=== PATIENT | male | born 1990 ===

== ENCOUNTER 2017-09-14 15:54 | Emergency (ER) | payer OTHER ==
[2017-09-14 16:14] LABS: PLATELET COUNT 223 10^3/uL (150-400)
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
--- NOTE | 2017-09-14 16:44 | CPEKG ---
Heart Rate: 67 RR Interval: 896 P-R Interval: 136 QRSD Interval: 94 QT Interval: 388 QTC Interval: [address]: [address]: [address]: 54 EKG Severity - NORMAL ECG - EKG Impression: SINUS RHYTHM Electronically Signed By: Jaz Blake 14-Sep-2017 23:05:46
[2017-09-14 17:27] VITALS: BP 119/75
== END 2017-09-14 17:26 | disposition home or self-care (01) ==
LOC: EDUNIT#
DX: R40.4 Transient alteration of awareness (principal)
CPT/HCPCS: G0480

== ENCOUNTER 2017-09-21 01:57 | Emergency (ER) | payer OTHER ==
--- NOTE | 2017-09-21 01:58 | EDPHY ---
H & P Time Seen by Provider: 09/21/17 01:58 HPI/ROS: HPI CHIEF COMPLAINT: Anxiety HISTORY OF PRESENT ILLNESS: Patient is a 27-year-old male, was recently seen here in the emergency room for an episode of unresponsiveness use referred to Neurology and did have a Neurology outpatient appointment that he went got evaluated. He scheduled to have MRI and EEG next week. He presents emergency room feeling very anxious this evening. He could not sleep. He thought maybe he was going to have a seizure. States he was hyperventilating. Numbness and tingling. And felt anxious. Woke up his dad and requested come to the emergency room. Past Medical History: Anxiety, questionable seizures Past Surgical History: No recent surgery Social History: Denies daily use of drugs alcohol tobacco Family History: Noncontributory ROS REVIEW OF SYSTEMS: A comprehensive 10 point review of systems is otherwise negative aside from elements mentioned in the history of present illness. Exam Constitutional appears well nontoxic, slightly anxious, triage nursing summary reviewed, vital signs reviewed, awake/alert. Eyes normal conjunctivae and sclera, EOMI, PERRLA. HENT normal inspection, atraumatic, moist mucus membranes, no epistaxis, neck supple/ no meningismus, no raccoon eyes. Respiratory clear to auscultation bilaterally, normal breath sounds, no respiratory distress, no wheezing. Cardiovascular rate normal, regular rhythm, no murmur, no edema, distal pulses normal. Gastrointestinal soft, non-tender, no rebound, no guarding, normal bowel sounds, no distension, no pulsatile mass. Genitourinary no CVA tenderness. Musculoskeletal no midline vertebral tenderness, full range of motion, no calf swelling, no tenderness of extremities, no meningismus, good pulses, neurovascularly intact. Skin pink, warm, & dry, no rash, skin atraumatic. Neurologic awake, alert and oriented x 3, AAOx3, moves all 4 extremities equally, motor intact, sensory intact, CN II-XII intact, normal cerebellar, normal vision, normal speech. Psychiatric anxious Heme/Lymph/Immune no lymphadenopathy. Differential Diagnosis: Includes but is not limited to in a particular order acute anxiety, panic attack, seizure, electrolyte disturbance Medical Decision Making: Plan for this patient IV establishment blood draw, IV fluid bolus 1 L normal saline, IV Ativan 1 mg, EKG and basic blood work and re- evaluate. Re-evaluation: EKG interpretation by me on record in [email or web address] system. Impression time of EKG 2:15 a.m., sinus rhythm rate of 66 J point elevation noted. Otherwise no signs of cardiac arrhythmia. No signs of WPW or Brugada. This EKG is very similar to previous EKG dated 09/14/2017 0253AM: Re-examination at this time patient resting comfortably. This feeling much better after IV Ativan IV fluids. Blood work has been reviewed there has been no evidence of seizure activity here and electrolytes are appropriate. No low bicarb. I have no evidence of seizure activity or syncope. EKG is nonischemic and unremarkable without any signs of cardiac arrhythmia. Blood work is additionally reassuring. Patient does feel better. Plan will be for discharge home. Follow up with his primary care doctor. Additionally limited supply of Ativan 1 mg given to him. Return precautions discussed. Source: Patient - Medical/Surgical History Hx Asthma: No Hx Chronic Respiratory Disease: No Hx Diabetes: No Hx Cardiac Disease: No Hx Renal Disease: No Hx Cirrhosis: No Hx Alcoholism: No Hx HIV/AIDS: No Hx Splenectomy or Spleen Trauma: No Other PMH: anxiety - Social History Smoking Status: Never smoked Constitutional: Initial Vital Signs Temperature (C) 36.9 C 09/21/17 02:00 Heart Rate 82 09/21/17 02:00 Respiratory Rate 18 09/21/17 02:00 Blood Pressure 129/69 H 09/21/17 02:00 O2 Sat (%) 99 09/21/17 02:00 O2 Delivery Mode Room Air Allergies/Adverse Reactions: No Known Allergies Allergy (Unverified 09/01/14 03:45) Home Medications: Medication Instructions Recorded LORazepam [Ativan] 1 mg PO DAILY #5 tablet 09/21/17 Medical Decision Making - Data Points Laboratory Results: Laboratory Results 09/21/17 02:16 09/21/17 02:16 09/21/17 09/21/17 02:16 02:16 WBC 8.12 10^3/uL 10^3/uL (3.80-9.50) RBC 5.54 10^6/uL 10^6/uL (4.40-6.38) Hgb 15.8 g/dL g/dL (13.7-17.5) Hct 45.7 % % (40.0-51.0) MCV 82.5 fL fL (81.5-99.8) MCH 28.5 pg pg (27.9-34.1) MCHC 34.6 g/dL g/dL (32.4-36.7) RDW 12.4 % % (11.5-15.2) Plt Count 183 10^3/uL 10^3/uL (150-400) MPV 10.4 fL fL (8.7-11.7) Neut % (Auto) 70.1 % % (39.3-74.2) Lymph % (Auto) 22.4 % % (15.0-45.0) [place] % (Auto) 6.7 % % (4.5-13.0) Eos % (Auto) 0.4 % L % (0.6-7.6) Baso % (Auto) 0.2 % L % (0.3-1.7) Nucleat RBC Rel Count 0.0 % % (0.0-0.2) Absolute Neuts (auto) 5.69 10^3/uL 10^3/uL (1.70-6.50) Absolute Lymphs (auto) 1.82 10^3/uL 10^3/uL (1.00-3.00) Absolute Monos (auto) 0.54 10^3/uL 10^3/uL (0.30-0.80) Absolute Eos (auto) 0.03 10^3/uL 10^3/uL (0.03-0.40) Absolute Basos (auto) 0.02 10^3/uL 10^3/uL (0.02-0.10) Absolute Nucleated RBC 0.00 10^3/uL 10^3/uL (0-0.01) Immature Gran % 0.2 % % (0.0-1.1) Immature Gran # 0.02 10^3/uL 10^3/uL (0.00-0.10) Sodium 138 mEq/L mEq/L (135-145) Potassium 3.5 mEq/L mEq/L (3.5-5.2) Chloride 104 mEq/L mEq/L (97-110) Carbon Dioxide 21 mEq/l L mEq/l (22-31) Anion Gap 13 mEq/L mEq/L (8-16) BUN 22 mg/dL mg/dL (7-23) Creatinine 0.9 mg/dL mg/dL (0.7-1.3) Estimated GFR > 60 Glucose 113 mg/dL H mg/dL (70-100) Calcium 9.5 mg/dL mg/dL (8.5-10.4) Medications Given: Discontinued Medications Sodium Chloride (Ns) 1,000 mls @ 0 mls/hr IV EDNOW ONE; Wide Open PRN Reason: Protocol Stop: 09/21/17 02:11 Last Admin: 09/21/17 02:20 Dose: 1,000 mls Lorazepam (Ativan Injection) 1 mg IVP EDNOW ONE Stop: 09/21/17 02:11 Last Admin: 09/21/17 02:20 Dose: 1 mg Departure - Departure Disposition: Home, Routine, Self-Care Clinical Impression: Anxiety Condition: Good Instructions: Anxiety (ED) Additional Instructions: 1. Return emergency room if you have worsening symptoms questions or concerns. 2. Only take Ativan if you feel very anxious. Referrals: NONE *PRIMARY CARE P,. [Primary Care Provider] - As per Instructions Prescriptions: LORazepam [Ativan] 1 mg PO DAILY #5 tablet
[2017-09-21] MEDS ORDERED: LORazepam 2 MG/ML INJ IVP ONE (02:10)
[2017-09-21] MEDS ORDERED: NS 1,000 ML IV ONE (02:10)
--- NOTE | 2017-09-21 02:18 | CPEKG ---
Heart Rate: 66 RR Interval: 909 P-R Interval: 136 QRSD Interval: 98 QT Interval: 416 QTC Interval: 436 P [place]: 75 QRS [place]: 73 T Wave [place]: 56 EKG Severity - NORMAL ECG - EKG Impression: SINUS RHYTHM EKG Impression: ST ELEV, PROBABLE NORMAL EARLY REPOL PATTERN Electronically Signed By: Pearl Mooney 22-Sep-2017 12:31:21
[2017-09-21 02:24] LABS: PLATELET COUNT 183 10^3/uL (150-400)
[2017-09-21 04:33] VITALS: BP 123/74
== END 2017-09-21 04:33 | disposition home or self-care (01) ==
DX: F41.9 Anxiety disorder, unspecified (principal); E86.9 Volume depletion, unspecified
CPT/HCPCS: 96374; J2060